=== PATIENT | male | born 1995 | race Caucasian/White ===

== ENCOUNTER 2022-12-18 15:27 | Emergency (ER) | payer SELFPAY ==
[2022-12-18 15:28] VITALS: BP 137/70; PULSE 75; RESP 18; TEMP 37.2; O2SAT 97; BMI 23.0
--- NOTE | 2022-12-18 15:34 | HMH.EDGENADL ---
Discharge Plan Disposition Patient Disposition: Home, Self-Care Activity Restrictions/Add. Instructions Additional Instructions/Restrictions: Please take Pepcid [id number] at night and take Maalox as needed during the day as well. Follow-up with a cath lab radiology technician if this continues more than a few weeks for possible endoscopy to evaluate for possible peptic ulcer disease. Return to the emergency department with any black stools or bloody stools or any vomiting of any blood. Clinical Impressions Clinical Impression: Gastroesophageal reflux disease, Abdominal pain, epigastric Instructions Patient Instructions: DI for Acute Abdominal Pain Discharge ED Provider: Zita Tuttle General Adult HPI General Chief complaint: Abdominal Pain Stated complaint: upper abd pain Time Seen by Provider: 12/18/22 15:34 History of Present Illness HPI narrative: 27-year-old male presents today with epigastric abdominal pain. History is primarily obtained through an hematology nurse educator through the iPad. Patient states has had 8 to 15 days worth of epigastric discomfort which is postprandial in nature but nothing alleviates or makes this better that he can put his finger on. He states he has had no fevers or chills. No hematemesis no hematochezia or melena. Denies any history of peptic ulcer disease or gastritis. He states he has been taken [id number] pill for gastritis but is not sure exactly what this is. He still has his gallbladder which did not been surgically removed. He denies any right upper quadrant abdominal pain. Denies any lower abdominal pain. Denies any nausea and vomiting. States that he has had times over the last 2 weeks where he has not had any discomfort and at times randomly it is also occurring. States the pain is mild and not severe. Denies any significant past medical history states that he does drink occasionally does not smoke Related Data Allergies Allergy/AdvReac Type Severity Reaction Status Date / Time No Known Allergies Allergy Verified 12/18/22 15:49 [facility] Disclaimer: The information contained in this section may have been updated after the patient was seen, as this information can be updated by other users. Medical History (Updated 12/18/22 @ 17:23 by Zita Tuttle MD) No pertinent past medical history Social History Smoking Status: Never smoker alcohol intake: never current occupational status: other Travel in the last 8 weeks: None ROS Obtained: Yes All systems reviewed & no additional complaints except as documented Physical Exam General General appearance: alert Respiratory Respiratory exam: Absent respiratory distress Cardiovascular Cardiovascular exam: Present regular rate; Absent tachycardia Abdominal Exam Abdominal exam: Present soft; Absent distention, tenderness, guarding, rebound or rigidity Neurological Exam Neurological exam: Present alert and oriented X3 Medical Decision Making Jone Inquiry Pt receiving controlled substance: No Vital Signs: 12/18/22 15:28 12/18/22 15:58 12/18/22 16:00 Temperature 98.9 F Temperature Source Oral Pulse Rate 79 69 Pulse Rate [Right Radial] 75 Respiratory Rate 18 Blood Pressure 123/75 117/63 Blood Pressure [Right Arm] 137/70 Blood Pressure Mean 91 85 Blood Pressure Mean [Right Arm] 92 Blood Pressure Source [Right Arm] Automatic Cuff Blood Pressure Position [Right Arm] Sitting 02 Sat by Pulse Oximetry 97 100 100 Oxygen Delivery Method Room Air Lab Data Lab results reviewed: Yes I reviewed the patient's lab results. Lab Results 12/18/22 15:50: WBC 8.2, RBC 5.01, Hgb 15.8, Hct 44.7, MCV 89.2, MCH 31.6 H, MCHC 35.4, RDW 12.9, Plt Count 233, MPV 8.3, Neut % (Auto) 61.9, Lymph % (Auto) 31.8, [place] % (Auto) 4.7, Eos % (Auto) 0.7, Baso % (Auto) 0.9, Neut # (Auto) 5.1, Lymph # (Auto) 2.6, [place] # (Auto) 0.4, Eos # (Auto) 0.1, Baso # (Auto) 0.1 12/18/22 15:50: Sodium 140, Potassium 4.2, C
--- NOTE | 2022-12-18 15:40 | XR_ITS ---
FINAL REPORT CLINICAL HISTORY: chest pain just [employer] w vertigo FINDINGS: PORTABLE CHEST The heart is normal in size. The mediastinum is unremarkable. The lungs are clear. There is no pneumothorax. IMPRESSION: No acute process. Reviewed, Interpreted and Dictated by Saroj Worrell MD Transcribed by Linda Holman Authenticated and [facility]
--- NOTE | 2022-12-18 15:49 | PC.NURSE ---
UA sent to lab
--- NOTE | 2022-12-18 15:57 | ECG_ITS ---
APPROVED REPORT Exam: Resting ECG HR:81 bpm ECG Measurements Heart Rate 81 AXES VA 141 P 46 QRSd 86 QRS 74 QT 338 T 66 QTc 375 Conclusion SINUS RHYTHM NORMAL ECG UNCONFIRMED REPORT Electronically signed by : Mikey Kat MD 12/19/2022 17:02:26
[2022-12-18 15:58] VITALS: BP 123/75; PULSE 79; O2SAT 100
[2022-12-18 16:00] VITALS: BP 117/63; PULSE 69; O2SAT 100
[2022-12-18 16:08] LABS: Chloride 101 mmol/L (98-107); Potassium 4.2 mmoL/L (3.5-5.1); Sodium 140 mmol/L (136-145)
[2022-12-18 16:11] LABS: Alanine Aminotransferase 19 U/L (12-78); Albumin Level 5.2 g/dl (3.5-5.0); Albumin/Globulin Ratio 1.7 (1.1-1.8); Alkaline Phosphatase 72 U/L (38-126); Anion Gap 15.2 mEq/L (5-15); Aspartate Amino Transferase 32 U/L (17-59); Bilirubin,Total 1.1 mg/dl (0.2-1.3); Blood Urea Nitrogen 14 mg/dl (9-20); Calcium 9.2 mg/dl (8.4-10.2); Carbon Dioxide 28 mmol/L (22.0-30.0); Creatinine Clearance Estimated 107 mL/min (50-200); Estimated Glomerular Filt Rate 90 ml/min (>60); GFR (African American) 108 ML/MIN (>60); Globulin 3.1 g/dL (1.3-3.2); Glucose 104 mg/dl (74-100); Lipase 225 U/L (23-300); Total Protein,Serum 8.3 g/dl (6.3-8.2)
[2022-12-18 16:14] LABS: Basophils # 0.1 K/mm3 (0-0.2); Basophils % 0.9 % (0.1-2.0); Eosinophils # 0.1 K/mm3 (0.0-0.4); Eosinophils % 0.7 % (0.1-12.0); Hematocrit 44.7 % (42.0-52.0); Hemoglobin 15.8 g/dL (14.1-18.0); Lymphocytes # 2.6 K/mm3 (0.7-4.5); Lymphocytes % 31.8 % (10-50); Mean Corpuscular HGB Conc 35.4 g/dL (31.8-35.4); Mean Corpuscular Hemoglobin 31.6 pg (27.0-31.2); Mean Corpuscular Volume 89.2 fl (80-94); Mean Platelet Volume 8.3 fl (7.4-10.4); Monocytes # 0.4 K/mm3 (0.1-1.0); Monocytes % 4.7 % (1.7-9.3); Neutrophils # 5.1 K/mm3 (1.8-7.8); Neutrophils % 61.9 % (37.0-80.0); Platelet Count 233 K/mm3 (142-424); Red Blood Count 5.01 M/mm3 (4.60-6.20); Red Cell Distribution Width 12.9 % (11.5-17.5); White Blood Count 8.2 K/mm3 (4.8-10.8)
[2022-12-18 16:32] LABS: Troponin I < 0.01 ng/ml (0.00-0.034)
--- NOTE | 2022-12-18 17:22 | PC.NURSE ---
BLC-12, junior technical writer line used for discharge teaching per myself and MD.
[2022-12-18 17:29] VITALS: BP 116/65; PULSE 79; RESP 18; TEMP 36.7; O2SAT 99
== END 2022-12-18 17:31 | disposition home or self-care (01) ==
PROVIDERS: Emergency Provider Student in an Organized Health Care Education/Training Program
DX: R10.13 Epigastric pain (principal); K21.9 Gastro-esophageal reflux disease without esophagitis
CPT/HCPCS: 71045; 80053; 83690; 84484; 85025; 93005; 96360; 99284; 99285